=== PATIENT | male | born 1995 | race Two or more races ===

== ENCOUNTER 2022-08-06 22:45 | Emergency (ER) | payer OTHER ==
[~2022-08-06] VITALS: Ht 160 cm; Wt 61.2 kg
== END 2022-08-07 01:20 | disposition home or self-care (01) ==
LOC: ER 22:45
DX: S61.411A Laceration without foreign body of right hand, initial encounter (principal); W45.8XXA Other foreign body or object entering through skin, initial encounter; Y93.9 Activity, unspecified; Y92.000 Kitchen of unspecified non-institutional (private) residence as the place of occurrence of the external cause; Y99.9 Unspecified external cause status